=== PATIENT | male | born 1945 | race Caucasian/White ===

== ENCOUNTER 2017-02-02 20:16 | Inpatient (IN) | payer OTHER, BC ==
[~2017-02-02] VITALS: Ht 182.9 cm; Wt 70.0 kg
[~2017-02-02 20:16] MED LIST: CARV6.2579 PO; FAMO40TA52 PO; GABA300C16 PO; RASA1TAB PO; ROPI1TAB24 PO; SIN25100 PO
[2017-02-02 20:34] VITALS: Ht 182.9 cm; Wt 70.0 kg
[2017-02-02] MEDS ORDERED: CARB1TAB42 PO (21:15)
[2017-02-02] MEDS ORDERED: DOCU-159 PO (21:17)
[2017-02-02] MEDS ORDERED: ACET325T45 PO (21:17)
[2017-02-02] MEDS ORDERED: FER325 PO (21:18)
[2017-02-02] MEDS ORDERED: HYDR-906 PO (21:19)
[2017-02-02] MEDS ORDERED: MELA3TAB29 PO (21:19)
[2017-02-02] MEDS ORDERED: PANT40TA4 PO (21:20)
[2017-02-02] MEDS ORDERED: SENN-53 PO (21:20)
[2017-02-02] MEDS ORDERED: QUET25TA33 PO ×2 (21:23)
[2017-02-02] MEDS ORDERED: MAG360OR42 PO (21:25)
[2017-02-02] MEDS ORDERED: ACETAMINOPHEN 500 MG TAB PO STA (22:13)
[2017-02-02 22:43] VITALS: TEMP 98
--- NOTE | 2017-02-02 22:52 | ERA ---
ER Documentation Chief Complaint Date/Time DATE: 02/02/17 TIME: 22:50 Chief Complaint FROM [facility] C/O LEFT ELBOW WOUND DRAIN AND LOW HGB 6.8 HPI Patient is a 71-year-old male sent to the ER by his orthopedic surgeon Dr. Goodrich for septic elbow with osteomyelitis. The patient has had prior surgery with resection of bone and washout, and has been on oxacillin for culture positive MSSA. He has an open wound to the left elbow that has been draining pus for several days. He was sent to the ER 2 days ago at [place], and it is unclear what was done. Today he saw his orthopedic surgeon, who advised that the patient come to the emergency department for admission and repeat washout. The patient denies fevers. According to his notes, his PICC line has not been functioning since yesterday. He denies dizziness, vomiting. ROS All systems reviewed and are negative except as per history of present illness. Medications Home Meds Reported Medications Mag Hydrox/Al Hydrox/Simeth (ALUM-MAG HYDROXIDE-SIMETH LIQ) 360 Ml Oral.susp, 30 ML PO Q4H 02/02/17 Quetiapine Fumarate* (Quetiapine Fumarate*) 25 Mg Tablet, 12.5 MG PO HS for FOR DEMENTIA WITH PSYCHOSIS, TAB 02/02/17 Quetiapine Fumarate* (Quetiapine Fumarate*) 25 Mg Tablet, 12.5 MG PO Q12H Y for NEEDED, TAB 02/02/17 Sennosides* (Senna Lax*) 8.6 Mg Tablet, 1 TAB PO NEEDED Y for CONSTIPATION, TAB 02/02/17 Pantoprazole* (Pantoprazole*) 40 Mg Tablet.dr, 40 MG PO AC BREAKFAST, TAB 02/02/17 Hydrocodone/Acetaminophen (Pomfret 5-325 Tablet) 1 Each Tablet, 1 EACH PO Q6H, TAB 02/02/17 Melatonin (MELADOX) 3 Mg Tablet.er, 3 MG PO QHS, TAB 02/02/17 Ferrous Sulfate* (Ferrous Sulfate*) 325 Mg Tabec, 325 MG PO DAILY, TAB 02/02/17 Docusate Sodium* (Docusate Sodium*) 100 Mg Capsule, 100 MG PO BID Y for NEEDED, #60 CAP 02/02/17 Acetaminophen* (Acetaminophen*) 325 Mg Tablet, 325 MG PO Q4H Y for FOR FEVER>100 , #30 TAB 02/02/17 Carbidopa/Levodopa (Carbidopa-Levo ER 25-100 Tab) 1 Each Tablet.er, 2 EACH PO QID, TAB 02/02/17 Discontinued Reported Medications Famotidine* (Famotidine*) 40 Mg Tablet, 40 MG PO HS, TAB 01/15/14 Ropinirole Hcl* (Requip*) 1 Mg Tablet, 2 MG PO AC LUNCH 11/04/13 Ropinirole Hcl* (Requip*) 1 Mg Tablet, 4 MG PO BID 11/04/13 Gabapentin* (Gabapentin*) 300 Mg Capsule, 300 MG PO QHS, CAP 11/04/13 Rasagiline Mesylate* (Azilect*) 1 Mg Tablet, 1 MG PO DAILY 11/04/13 Carbidopa-Levodopa* (Sinemet*) 1 Tab Tab, 1 TAB PO 5 TIMES DAILY, TAB 11/04/13 Carvedilol* (Carvedilol*) 6.25 Mg Tablet, 6.25 MG PO BID 03/08/11 Allergies Allergies: Coded Allergies: No Known Drug Allergies (Verified Allergy, Unknown, 02/02/17) PMhx/Soc Past medical history: Parkinson's disease, hypertension, septic elbow Past surgical history: Bilateral hip replacements, washout of left elbow Social history: Lives in custodial, denies tobacco or alcohol History of Surgery: No Anesthesia Reaction: No Hx Respiratory Disorders: No Hx Cardiac Disorders: Yes (HTN) Hx Psychiatric Problems: No Hx Miscellaneous Medical Probl: Yes (MRSA) Hx Alcohol Use: No Hx Substance Use: No Hx Tobacco Use: No Smoking Status: Never smoker FmHx Family History: No coronary disease, No diabetes Physical Exam Vitals Vital Signs Date Time Temp Pulse Resp B/P Pulse Ox O2 Delivery O2 Flow Rate FiO2 02/03/17 00:35 73 16 135/81 98 Room Air 02/02/17 22:43 98.0 71 18 147/86 97 Room Air 02/02/17 20:34 98.0 69 18 114/57 96 02/02/17 20:27 101.6 69 18 114/57 99 Physical Exam Const: Alert, no acute distress Head: Atraumatic Eyes: Normal Conjunctiva, moderate pallor, no icterus ENT: Normal External Ears, Nose and Mouth. Mucous membranes moist Neck: Full range of motion..~ No meningismus. Resp: Clear to auscultation bilaterally, no wheezes, no rales Cardio: Regular rate and rhythm, no murmurs Abd: Soft, non tender, non distended. Normal bowel sounds Skin: No petechiae or rashes Back: No midline or flank tenderness Ext: No cyanosis. Left elbow with edema and mild erythema, 2 cm open wound draining thin purulent fluid. 2+ radial pulse, strength and sensation intact in the hand. Neur: Awake and alert Psych: Normal Mood and Affect Result Diagram: 02/02/17223902/02/172239 Results 24 hrs Laboratory Tests Test 02/02/17 22:40 White Blood Count 6.410^3/ul Red Blood Count 2.3910^6/ul Hemoglobin 7.1g/dl Hematocrit 22.0% Mean Corpuscular Volume 92.1fl Mean Corpuscular Hemoglobin 29.7pg Mean Corpuscular Hemoglobin Concent 32.3g/dl Red Cell Distribution Width 19.3% Platelet Count 64257^3/UL Mean Platelet Volume 8.8fl Neutrophils % 70.4% Lymphocytes % 19.2% Monocytes % 8.9% Eosinophils % 0.5% Basophils % 0.5% Nucleated Red Blood Cells % 0.0/100WBC Neutrophils # (Manual) 510^3/ul Lymphocytes # 1.210^3/ul Monocytes # 0.610^3/ul Eosinophils # 0.010^3/ul Basophils # 0.010^3/ul Nucleated Red Blood Cells # 0.010^3/ul Prothrombin Time 14.0Sec Prothrombin Time Ratio 1.1 INR International Normalized Ratio 1.08 Activated Partial Thromboplast Time 39.8Sec Sodium Level 132mmol/L Potassium Level 4.2mmol/L Chloride Level 100mmol/L Carbon Dioxide Level 27mmol/L Anion Gap 9 Blood Urea Nitrogen 18mg/dl Creatinine 0.80mg/dl Glucose Level 111mg/dl Calcium Level 8.4mg/dl Current Medications Medications (Trade) Dose Ordered Sig/Tommy Route PRN Reason Start Time Stop Time Status Last Admin Dose Admin Acetaminophen (Tylenol Tab) 1,000 mg ONCE STAT PO 02/02/17 22:13 02/02/17 22:15 DC 02/02/17 22:43 Ondansetron HCl (Zofran Inj) 4 mg BRIDGE ORDER PRN IV NAUSEA AND/OR VOMITING 02/02/17 23:00 02/03/17 01:30 DC Acetaminophen 650 mg 650 mg ER BRIDGE PRN PO MILD PAIN/FEVER 02/02/17 23:00 02/03/17 22:59 Oxacillin Sodium 2 gm/Sodium Chloride 50 ml @ 100 mls/hr ONCE ONCE IVPB 02/02/17 23:30 02/02/17 23:59 DC 02/02/17 23:34 Sodium Chloride (NS) 500 ml @ 500 mls/hr Q1H ONCE IV 02/02/17 23:30 02/03/17 00:29 DC 02/02/17 23:34 Procedures/MDM Patient is a 71-year-old male left elbow septic joint and osteomyelitis who has been followed by an orthopedic surgeon at [facility]. He was sent to [facility] today by his orthopedic surgeon after being seen as an outpatient and be determined to need further surgical treatment. I spoke with his orthopedic surgeon, who stated that due to insurance issues, he is unable to treat the patient at [facility], and that he does not have privileges at [facility]. He requested that I consult to the on-call orthopedic surgeon. I spoke with Dr. Lopez, who initially stated that he would not assume care of the patient who had been recently operated on by another surgeon. I discussed the case with Dr. Cheng, the [place] hospitalist, who spoke with both Dr. Goodrich and Dr. Lopez, and notified me that Dr. lopez had agreed to consult on the patient. The patient had a clotted PICC line, but a peripheral line was placed, and the patient was given IV fluids and oxacillin. He will be admitted for further surgical treatment, and will likely need infectious disease consultation due to failure of outpatient treatment with oxacillin. He has no signs of sepsis. He has chronic anemia with low iron levels, but is not symptomatic. I will defer to inpatient treatment regarding transfusion. Stool guaiacs were ordered. The patient was noted to have a hemoglobin of 7.8 two and a half weeks ago. Departure Diagnosis: Primary Impression: Osteomyelitis of elbow Additional Impression: Iron deficiency anemia Qualified Code: D50.9 - Iron deficiency anemia, unspecified iron deficiency anemia type Condition: ROSA De La Cruz MD Feb 02, 2017 22:52
[2017-02-02 22:59] LABS: BASOPHILS % 0.5 % (0.0-2.0); EOSINOPHILS % 0.5 % (0.0-7.0); HEMOGLOBIN 7.1 g/dl (14.0-18.0); LYMPHOCYTES # 1.2 10^3/ul (0.8-2.9); LYMPHOCYTES % 19.2 % (15.0-51.0); MEAN CORPUSCULAR HEMOGLOBIN 29.7 pg (29.0-33.0); MEAN CORPUSCULAR HGB CONC 32.3 g/dl (32.0-37.0); MEAN CORPUSCULAR VOLUME 92.1 fl (82.0-101.0); MEAN PLATELET VOLUME 8.8 fl (7.4-10.4); MONOCYTE # 0.6 10^3/ul (0.3-0.9); MONOCYTES % 8.9 % (0.0-11.0); NEUTROPHILS % 70.4 % (39.0-77.0); PLATELET COUNT 325 10^3/UL (140-415); RED BLOOD COUNT 2.39 10^6/ul (4.70-6.10); RED CELL DISTRIBUTION WIDTH 19.3 % (11.5-14.5); WHITE BLOOD COUNT 6.4 10^3/ul (4.8-10.8)
[2017-02-02] MEDS ORDERED: ACETAMINOPHEN 325 MG TAB PO PRN (23:00)
[2017-02-02] MEDS ORDERED: ONDANSETRON 4 MG INJ IV PRN (23:00)
[2017-02-02 23:17] LABS: INR 1.08; PT RATIO 1.1
[2017-02-02 23:18] LABS: PARTIAL THROMBOPLASTIN TIME 39.8 Sec (25.0-35.0)
[2017-02-02 23:20] LABS: CALCIUM 8.4 mg/dl (8.4-10.2); CREATININE 0.8 mg/dl (0.61-1.24); POTASSIUM 4.2 mmol/L (3.5-5.1)
[2017-02-02] MEDS ORDERED: OXACILLIN 2 GM in SOD CHLORIDE 0.9% 50 ML IVPB ONE (23:30)
[2017-02-02] MEDS ORDERED: SOD CHLORIDE 0.9% 500 ML IV ONE (23:30)
--- NOTE | 2017-02-02 23:58 | RADRPT ---
PROCEDURE: X-ray left elbow. CLINICAL INDICATION: Swelling and infectious process at the left elbow. Concern for osteomyelitis. TECHNIQUE: 2 views left elbow. COMPARISON: None. FINDINGS: Osseous defects at the trochlea, capitellum and dorsal radial head. Air and soft tissue swelling is seen over the left elbow, suggesting septic arthritis. In setting of a chronic infectious process at the left elbow findings are concerning for osteomyelit is at the dorsal radial head as well as at the trochlea. Additionally, there is a lucency at the pr oximal ulna, suggesting osteomyelitis. Lucency at the capitellum is also concerning for osteomyelit is. Recommend MRI examination for further evaluation. The trochlea appears fragmented. Dystrophic calcifications in the dorsal aspect of the medial dista l arm. IMPRESSION: 1. The findings likely represent multifocal osteomyelitis at the bilateral elbow, including involve ment of the trochlea, capitellum and dorsal radial head. 2. Air and soft tissue swelling is seen over the left elbow, suggest septic arthritis. 3. Consider MRI correlation. RPTAT: [facility] Physician Kadie Date Time Electronically viewed and signed by Physician Kadie on 02/02/2017 23:58 RS/
[2017-02-03] VITALS (11 sets, daily range): BP systolic 110–187; BP diastolic 59–97; PULSE 72–86; RESP 18–20
[2017-02-03] MEDS ORDERED: ONDANSETRON 4 MG INJ IV PRN (01:30)
[2017-02-03] MEDS ORDERED: OXACILLIN IM SCH (06:00)
[2017-02-03] MEDS ORDERED: OXACILLIN 2 GM in SOD CHLORIDE 0.9% 50 ML IVPB SCH (06:00)
[2017-02-03 08:35] LABS: BASOPHILS % 0.4 % (0.0-2.0); EOSINOPHILS % 0.2 % (0.0-7.0); HEMATOCRIT 22.5 % (42.0-52.0); HEMOGLOBIN 7.7 g/dl (14.0-18.0); LYMPHOCYTES # 1.2 10^3/ul (0.8-2.9); LYMPHOCYTES % 23.6 % (15.0-51.0); MEAN CORPUSCULAR HEMOGLOBIN 30.7 pg (29.0-33.0); MEAN CORPUSCULAR HGB CONC 34.2 g/dl (32.0-37.0); MEAN CORPUSCULAR VOLUME 89.6 fl (82.0-101.0); MONOCYTE # 0.5 10^3/ul (0.3-0.9); MONOCYTES % 9.1 % (0.0-11.0); NEUTROPHILS % 66.1 % (39.0-77.0); PLATELET COUNT 279 10^3/UL (140-415); RED BLOOD COUNT 2.51 10^6/ul (4.70-6.10); RED CELL DISTRIBUTION WIDTH 19.6 % (11.5-14.5)
[2017-02-03 09:09] LABS: CALCIUM 8.6 mg/dl (8.4-10.2); CREATININE 0.6 mg/dl (0.61-1.24); POTASSIUM 4.4 mmol/L (3.5-5.1)
[2017-02-03] MEDS ORDERED: ACETAMINOPHEN 500 MG TAB PO STA (09:38)
[2017-02-03] MEDS ORDERED: DIPHENHYDRAMINE 50 MG INJ IV ONE (10:00)
[2017-02-03] MEDS ORDERED: hydrALAzine 20 MG INJ IV STA (10:32)
[2017-02-03] MEDS: CARBIDOPA/LEVODOPA 50-200 (CR) TAB PO SCH ×3 (10:49→22:16)
--- NOTE | 2017-02-03 11:36 | HP ---
DATE OF ADMISSION: 02/03/2017 CHIEF COMPLAINT: "I was sent here by my orthopedic doctor for surgery". HISTORY OF PRESENT ILLNESS: The patient is a 71-year-old male with Parkinson disease who was recently hospitalized at [facility]. The patient was under the care of Dr. English who performed extensive irrigation and incision and debridement of the patient's left elbow for left elbow osteomyelitis with possible septic arthritis. The patient was also found to have left elbow cellulitis and sepsis with bacteremia. The patient's culture grew methicillin sensitive Staph aureus and the patient was placed on oxacillin. Then subsequently the patient was sent to a shelter facility for ongoing antibiotic care. The patient visited Dr. English in his office 1 day prior to admission, and he was sent to the emergency room. Apparently, he was transferred to [facility] and Dr. English told me that he does not have privileges here. As a result, antibiotics were started and Dr. Hensley was consulted. The patient was also found to have a hemoglobin of 7.1. He continued on oxacillin and given 2 units of packed red blood cells. ALLERGIES: NO KNOWN DRUG ALLERGIES. PAST MEDICAL HISTORY: As above. The patient stated that he does not go to the doctor much. PAST SURGICAL HISTORY: The patient denies. SOCIAL HISTORY: The patient denies current alcohol or tobacco use. FAMILY HISTORY: Essentially noncontributory in this pleasant 71- year-old gentleman. PHYSICAL EXAMINATION: VITAL SIGNS: Temperature is 98.7, blood pressure 147/81, pulse rate of 68, respiratory rate of 18, and oxygen saturation 98 percent on room air. HEENT: Normocephalic, atraumatic. Extraocular movements are intact. His pupils were equal, round, reactive to light and accommodation. His oropharynx was dry and his dentition was poor. CARDIOVASCULAR: Regular rate and rhythm without appreciable murmurs, rubs, or gallops. LUNGS: His lungs were clear to auscultation bilaterally without rales, rhonchi, or crackles. ABDOMEN: Abdomen is soft, nontender, nondistended with normoactive bowel sounds present in all 4 quadrants. No distention. EXTREMITIES: 2 plus dorsalis pedis pulse and 2 plus radial pulses bilaterally. There is a 2 cm open wound draining thin purulent fluid. He had 2 plus radial pulses. Strength and sensation was intact in his bilateral upper extremities and lower extremities. LABORATORY\\E\\TESTS: White count 6.4, hemoglobin 7.9, hematocrit of 22, platelet count 325,000 with normal differential. Sodium 132, potassium 4.2, chloride 100, bicarb 27, anion gap 9, BUN 18, creatinine 0.8, glucose 111, and calcium 8.4. PT is 14, INR 1.08, PTT of 39.8. RADIOLOGY: The patient had an x-ray of his left elbow which revealed multifocal osteomyelitis at the bilateral elbow including involvement of the trochlea, capitulum and dorsal radial head. There was also air and soft tissue mass swelling seen over the left elbow suggestive of septic arthritis. IMPRESSION: The patient is a 71-year-old gentleman with Parkinson disease who presents to the hospital with a wound infection and prior osteomyelitis of the left elbow. Dr. Hensley has been consulted, as well as Dr. Villa. The patient is continued on oxacillin. There was also some discussion of problems with his PICC line, which will be changed. At this point the patient will obtain these consultations and may need washout in the operating room. This we be depending on Dr. Villa's and Dr. Hensley's recommendations. The patient is stable and the plan of care has been explained to him. The patient also was found to be anemic. The chronicity is unknown. I will check a stool guaiac and transfuse the patient 2 units of packed red blood cells. Further treatment recommendations to follow based on the workup. Dictated By: Louie Cheng MD /chun/kaykay /Document#: [id number] JAIME
[2017-02-03] MEDS: DOCUSATE SODIUM 100 MG CAP PO SCH ×2 (11:59→22:16)
[2017-02-03] MEDS ORDERED: CEFTRIAXONE 2 GM/50 ML (PMX) 50 ML IVPB SCH (13:00)
[2017-02-03] MEDS ORDERED: VANCOMYCIN IV PER PHARMACY XX SCH (14:30)
[2017-02-03] MEDS ORDERED: VANCOMYCIN 1.5 GM in SOD CHLORIDE 0.9% 250 ML IVPB ONE (15:00)
--- NOTE | 2017-02-03 16:43 | CONS ---
DATE OF ADMISSION: 02/03/2017 DATE OF CONSULTATION: 02/03/2017 CHIEF COMPLAINT: Left elbow pain. HISTORY OF PRESENT ILLNESS: This is a 71-year-old male, who is complaining of left elbow pain. The patient is a poor historian. According to the patient, he has had chronic left elbow pain with drainage. He has had a recent left elbow excision and debridement performed by Dr. Mj Norman from [facility]. His last surgery was performed within the last 2 weeks. According to the patient, he has developed increased drainage of his left elbow. He denies any fevers or chills. He has no other complaints. PAST MEDICAL HISTORY: The patient denies any previous history. MEDICATIONS: None. PAST SURGICAL HISTORY: Left elbow irrigation and debridement performed by Dr. Mj Norman. SOCIAL HISTORY: The patient lives at a intermediate. Denies tobacco, alcohol, or drug use. FAMILY HISTORY: Noncontributory. ALLERGIES: NO KNOWN DRUG ALLERGIES. REVIEW OF SYSTEMS: Negative except for HPI. PHYSICAL EXAMINATION: VITAL SIGNS: Afebrile with stable vital signs. GENERAL: The patient is in no acute distress. He is alert and oriented times 2. EXTREMITIES: There is purulent drainage of the left elbow with a less than 1 cm open wound. There is surrounding cellulitis with effusion. He is able to actively flex and extend his elbow without pain. He has intact sensation distribution median, radial, and ulnar nerves. He has a palpable artery pulse. LABORATORY DATA: White blood cell count 6.4, hemoglobin 7.2. X-RAYS: X-rays of left elbow do not demonstrate any fractures or dislocations. There are changes consistent with osteomyelitis. IMPRESSION: A 71-year-old male with history of left elbow osteomyelitis and chronic drainage. PLAN: I spoke with Dr. Cheng. The plan will be to perform a left elbow irrigation and debridement with possible wound VAC application. He is on antibiotics. He has a history of methicillin-sensitive Staphylococcus aureus. He has a PICC line for outpatient antibiotics. I explained to Dr. Cheng that following the irrigation and debridement he can be transferred back to the care of Dr. Mj Norman for further care. I explained to the patient that he may require further irrigation and debridement, possible need for skin graft or flap, or possible amputation of his arm. He will be n.p.o. after midnight. Informed consent will be obtained from his DPOA. I spoke to this daughter, Rubina. All questions were answered to her satisfaction. Dictated By: Madison Mcmanus MD /chun/geovanny /Document#: [id number]
--- NOTE | 2017-02-03 21:40 | CONS ---
DATE OF ADMISSION: 02/03/2017 DATE OF CONSULTATION: 02/03/2017 REASON FOR CONSULTATION: Antibiotic management. HISTORY OF PRESENT ILLNESS: Alfonso Avalos is a 71-year-old male with a history of Parkinson disease who was recently hospitalized at [facility]. The patient was seen by Dr. English who performed an extensive irrigation with incision and drainage, as well as debridement of the patient's left elbow for left elbow osteomyelitis and possible septic arthritis. Patient was found to be septic with bacteremia with methicillin sensitive Staph aureus and was placed on oxacillin. Patient was then sent to a longterm facility. One day prior to admission he was seen by Dr. English and was sent to the emergency room, and transferred to [facility]. Patient has a white count of 6.4, H and H is 7.9 and 22, platelet count 325,000. His BUN and creatinine is 18/0.8, calcium 8.4. X-ray shows multifocal osteomyelitis at the left elbow involving the trochlea, capitellum and dorsal radial head. Air and soft tissue swelling is seen over the left elbow suggesting septic arthritis. Consider MRI correlation. Infectious Disease consult was obtained. PAST MEDICAL HISTORY: Operations as outlined. FAMILY HISTORY: Noncontributory. SOCIAL HISTORY: He does not smoke, drink, or abuse drugs. ALLERGIES: NONE TO PENICILLIN, SULFA, OR FOODS. MEDICATION: Per chart. REVIEW OF SYSTEMS: As per HPI. PHYSICAL EXAMINATION: GENERAL: Patient is a well-developed, well-nourished male who is alert, responsive, in no acute distress. VITAL SIGNS: Stable, he is afebrile. SKIN: Without generalized rash. HEENT: Within normal limits. NECK: Supple. Lymph nodes nonpalpable. CHEST: Decreased breath sounds at the bases. ABDOMEN: Soft, nontender, without organosplenomegaly or masses. EXTREMITIES: Without cyanosis, clubbing., or edema. He has good strength in his upper extremities. He has a 2 cm open wound draining thin purulent fluid from the left elbow. RECTAL: Deferred. NEUROLOGICAL: No focal neurological abnormalities. IMPRESSION AND PLAN: The patient is a 71-year-old male, comes in now with osteomyelitis of left elbow. Since he has methicillin sensitive Staph aureus and he has abnormal chemistries, I would put him on ceftriaxone rather than on oxacillin. Patient may need additional washout in the operating room, and Dr. Hensley and is covering for Dr. English, who does not have privileges here. I will dictate my findings to Dr. Gusman. Dictated By: Phi Villa MD JD/chun/kaykay /Document#: [id number]
[2017-02-03] MEDS: CEFTRIAXONE 2 GM/50 ML (PMX) 50 ML IVPB SCH (22:15)
[2017-02-04] VITALS (8 sets, daily range): BP systolic 98–158; BP diastolic 57–84; PULSE 72–87; RESP 18–20
[2017-02-04] MEDS: VANCOMYCIN 1 GM in NS 250 ML IVPB SCH ×2 (03:24→16:14)
[2017-02-04] MEDS: PANTOPRAZOLE (EC) 40 MG TAB PO SCH (05:58)
[2017-02-04] MEDS: CARBIDOPA/LEVODOPA 50-200 (CR) TAB PO SCH ×4 (08:40→20:40)
[2017-02-04] MEDS: DOCUSATE SODIUM 100 MG CAP PO SCH ×2 (08:40→20:40)
--- NOTE | 2017-02-04 11:08 | PN ---
Date/Time of Note Date/Time of Note DATE: 02/04/17 TIME: 11:01 Assessment/Plan VTE Prophylaxis VTE Prophylaxis Intervention: SCD's Lines/Catheters IV Catheter Type (from Nrs): Central Line Central line still needed: Yes Urinary Cath still in place: No Assessment/Plan Assessment/Plan The patient is a pleasant 71-year-old gentleman with: 1. Left elbow osteomyelitis and septic joint: Improving: I appreciate the recommendations from Dr. Villa and Dr. Hensley. Antibiotics modified from oxacillin to Rocephin. Vancomycin is still being administered. Dr. Hensley will try to put the patient on for washout tomorrow. The patient's son will sign consent. 2. Parkinson's disease: Stable. His symptoms are markedly improved after restarting his Sinemet. I will continue his Sinemet 4 times daily. 3. GI prophylaxis: Continue Protonix. Subjective 24 Hr Interval Summary Free Text/Dictation Awake and alert. The patient's son is at the bedside. He is the [employer]ER. There was some confusion as to consenting for operative debridement. The son and patient are both agreeable. Exam/Review of Systems Vital Signs Vitals Vital Signs Date Time Temp Pulse Resp B/P Pulse Ox O2 Delivery O2 Flow Rate FiO2 02/04/17 07:27 98.4 83 18 141/64 97 02/03/17 00:35 Room Air Intake and Output 02/03/17 02/03/17 02/04/17 15:00 23:00 07:00 Intake Total 50 ml 1990 ml 600 ml Output Total 952 ml 400 ml Balance 50 ml 1038 ml 200 ml Exam Constitutional: alert, oriented Psych: no complaints Head: normocephalic ENMT: nl external ears & nose, other (Poor dentition.) Neck: supple Respiratory: clear to auscultation Cardiovascular: regular rate and rhythm Gastrointestinal: soft Extremities: other (Left elbow is dressed. The dressing is clean dry and intact.) Results Result Diagram: 02/03/17 0758 02/03/17 0758 Results 24 hrs Laboratory Tests Test 02/03/17 17:15 Stool Occult Blood NEGATIVE Medications Medications Current Medications Ondansetron HCl (Zofran Inj) 4 mg Q6 PRN IV NAUSEA AND/OR VOMITING; Start 02/03 at 01:30 Carbidopa/Levodopa (Sinemet Cr (50/ 200)) 1 tab QID PO Last administered on 08:40; Admin Dose 1 TAB; Start 02/03/17 at 12:00 Pantoprazole (Protonix Tab) 40 mg DAILY@06 PO ; Start 02/04/17 at 06:00 Docusate Sodium 100 mg 100 mg BID PO Last administered on 02/04/17 08:40; Admin Dose 100 MG; Start 02/03/17 at 11:00 Vancomycin HCl 250 ml @ 125 mls/hr Q12H IVPB Last administered on 02/04/17 03 :24; Admin Dose 125 MLS/HR; Start 02/04/17 at 03:00 Ceftriaxone Sodium (Rocephin) 50 ml @ 100 mls/hr Q24H IVPB Last administered on 02/03/17 22:15; Admin Dose 100 MLS/HR; Start 02/03/17 at 21:00 MEHUL CARTER MD Feb 04, 2017 11:08
[2017-02-04 11:26] LABS: BASOPHILS % 0.3 % (0.0-2.0); HEMOGLOBIN 9.3 g/dl (14.0-18.0); LYMPHOCYTES # 0.6 10^3/ul (0.8-2.9); LYMPHOCYTES % 10.6 % (15.0-51.0); MEAN CORPUSCULAR HEMOGLOBIN 30.2 pg (29.0-33.0); MEAN CORPUSCULAR HGB CONC 33.2 g/dl (32.0-37.0); MEAN CORPUSCULAR VOLUME 90.9 fl (82.0-101.0); MEAN PLATELET VOLUME 9.1 fl (7.4-10.4); MONOCYTE # 0.5 10^3/ul (0.3-0.9); NEUTROPHILS % 80.8 % (39.0-77.0); PLATELET COUNT 297 10^3/UL (140-415); RED BLOOD COUNT 3.08 10^6/ul (4.70-6.10); RED CELL DISTRIBUTION WIDTH 18.6 % (11.5-14.5); WHITE BLOOD COUNT 5.7 10^3/ul (4.8-10.8)
[2017-02-04 11:48] LABS: CALCIUM 8.7 mg/dl (8.4-10.2); CREATININE 0.59 mg/dl (0.61-1.24); POTASSIUM 4.2 mmol/L (3.5-5.1)
--- NOTE | 2017-02-04 14:30 | PN ---
DATE: 02/04/2017 SUBJECTIVE: No acute changes. The patient is alert, looks comfortable. No fevers. LABORATORY AND DIAGNOSTIC DATA: WBC 5.7, H and H 9.3 and 28, platelets 297, neutrophils 80.8, BUN 15, creatinine 0.59. Left elbow wound cultures are pending. Nares swab negative. Blood cultures pending. ANTIMICROBIALS: Vancomycin, Rocephin. INDWELLINGS: PICC line, right upper extremity, present on admission. PHYSICAL EXAMINATION: GENERAL: Fragile, chronically ill-appearing elderly man who is alert, in no distress. HEENT: Head atraumatic, normocephalic. Sclerae anicteric. Buccal mucosa dry. NECK: Supple. CHEST: Rise symmetrical. Breath sounds clear. HEART: S1, S2. ABDOMEN: Soft. Bowel sounds present. EXTREMITIES: Left elbow dressing intact. ASSESSMENT: 1. 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 2. Parkinson's dementia. 3. Systemic inflammatory response syndrome. PLAN: The patient remains stable, covered with broad-spectrum antibiotics. Pending wound cultures. The patient is being seen Ortho, plan for I and D. Anticipate discharge on IV antibiotics for 6-8 weeks. Follow up with Ortho. Dictated By: Abby Gilliland NP /chun/gama /Document#: [id number]
[2017-02-04] MEDS: QUETIAPINE 25 MG TAB PO PRN (16:14)
[2017-02-04] MEDS: QUETIAPINE 25 MG TAB PO SCH (20:40)
[2017-02-04] MEDS: CEFTRIAXONE 2 GM/50 ML (PMX) 50 ML IVPB SCH (20:40)
[2017-02-04] MEDS: D5W-0.45 NACL + KCL 20 MEQ 1,000 ML IV SCH (23:58)
[2017-02-05] VITALS (27 sets, daily range): BP systolic 94–184; BP diastolic 50–90; PULSE 71–86; RESP 18–28
[2017-02-05 03:00] LABS: CALCIUM 8.5 mg/dl (8.4-10.2); CREATININE 0.61 mg/dl (0.61-1.24); POTASSIUM 4.3 mmol/L (3.5-5.1)
[2017-02-05] MEDS: VANCOMYCIN 1 GM in NS 250 ML IVPB SCH (03:02)
[2017-02-05] MEDS: PANTOPRAZOLE (EC) 40 MG TAB PO SCH (05:07)
[2017-02-05 06:26] LABS: BASOPHILS % 0.4 % (0.0-2.0); HEMATOCRIT 25.6 % (42.0-52.0); HEMOGLOBIN 8.5 g/dl (14.0-18.0); LYMPHOCYTES # 0.8 10^3/ul (0.8-2.9); LYMPHOCYTES % 15.4 % (15.0-51.0); MEAN CORPUSCULAR HEMOGLOBIN 30.1 pg (29.0-33.0); MEAN CORPUSCULAR HGB CONC 33.2 g/dl (32.0-37.0); MEAN CORPUSCULAR VOLUME 90.8 fl (82.0-101.0); MEAN PLATELET VOLUME 8.7 fl (7.4-10.4); MONOCYTE # 0.7 10^3/ul (0.3-0.9); MONOCYTES % 12.8 % (0.0-11.0); PLATELET COUNT 251 10^3/UL (140-415); RED BLOOD COUNT 2.82 10^6/ul (4.70-6.10); RED CELL DISTRIBUTION WIDTH 18.6 % (11.5-14.5); WHITE BLOOD COUNT 5.4 10^3/ul (4.8-10.8)
[2017-02-05] MEDS ORDERED: LIDOCAINE 2% (SDV) 5 ML INJ ONE (07:00)
[2017-02-05] MEDS ORDERED: PROPOFOL 200 MG INJ ONE (07:00)
[2017-02-05] MEDS: CARBIDOPA/LEVODOPA 50-200 (CR) TAB PO SCH ×4 (08:20→20:13)
[2017-02-05] MEDS: DOCUSATE SODIUM 100 MG CAP PO SCH ×2 (08:20→20:13)
[2017-02-05] MEDS: D5W-0.45 NACL + KCL 20 MEQ 1,000 ML IV SCH ×2 (10:00→20:13)
[2017-02-05] MEDS ORDERED: hydrALAzine 20 MG INJ ONE (11:24)
[2017-02-05] MEDS: hydrALAzine 20 MG INJ IV PRN (11:25)
[2017-02-05] MEDS ORDERED: ONDANSETRON 4 MG INJ IV PRN (12:30)
[2017-02-05] MEDS ORDERED: EPHEDrine SULFATE 50 MG/5 ML SYG IV PRN (12:30)
[2017-02-05] MEDS ORDERED: KETOROLAC 30 MG INJ IV PRN (12:30)
[2017-02-05] MEDS ORDERED: FENTAnyl 50 MCG/ML VIAL IV PRN ×3 (12:30)
[2017-02-05] MEDS ORDERED: LABETALOL HCL 20MG INJ IV PRN (12:30)
[2017-02-05] MEDS ORDERED: hydrALAzine 20 MG INJ IV PRN (12:30)
[2017-02-05] MEDS ORDERED: morphine (1 MG/ML) 10ML SYRINGE IV PRN ×3 (12:30)
[2017-02-05] MEDS ORDERED: MEPERIDINE 25 MG INJ IV PRN (12:30)
[2017-02-05] MEDS ORDERED: FENTAnyl 50 MCG/ML VIAL ONE (12:32)
--- NOTE | 2017-02-05 13:53 | HPN ---
Date/Time of Note Date/Time of Note DATE: 02/05/17 TIME: 13:53 Interval H&P Admission Note Pt. seen H&P reviewed: No system changes SADIE PARKER MD Feb 05, 2017 13:53
[2017-02-05] MEDS ORDERED: PHENYLephrine (100 MCG/ML) 5ML SYG ONE (14:06)
[2017-02-05] MEDS ORDERED: MIDAZOLAM 1 MG/ML 2 ML INJ ONE (14:11)
--- NOTE | 2017-02-05 14:27 | CONS ---
Date/Time of Note Date/Time of Note DATE: 02/05/17 TIME: 14:25 Assessment/Plan Assessment/Plan Chief Complaint/Hosp Course SUBJECTIVE: No acute changes. The patient is alert, looks comfortable. No fevers. ANTIMICROBIALS: Vancomycin, Rocephin. INDWELLINGS: PICC line, right upper extremity, present on admission. PHYSICAL EXAMINATION: GENERAL: Fragile, chronically ill-appearing elderly man who is alert, in no distress. HEENT: Head atraumatic, normocephalic. Sclerae anicteric. Buccal mucosa dry. NECK: Supple. CHEST: Rise symmetrical. Breath sounds clear. HEART: S1, S2. ABDOMEN: Soft. Bowel sounds present. EXTREMITIES: Left elbow dressing intact. ASSESSMENT: 1. 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 2. Parkinson's dementia. 3. Systemic inflammatory response syndrome. PLAN: The patient remains stable, scheduled for debridement today, continue antibiotics, follow or to recommendations. Patient will require long-term IV antibiotics. Discussed with staff Problems: Consultation Date/Type/Reason Admit Date/Time Feb 03, 2017 at 01:18 Initial Consult Date Type of Consultation: ID Exam/Review of Systems Vital Signs Vitals Vital Signs Date Time Temp Pulse Resp B/P Pulse Ox O2 Delivery O2 Flow Rate FiO2 02/05/17 11:36 98.8 85 18 140/71 98 Room Air Intake and Output 02/04/17 02/04/17 02/05/17 15:00 23:00 07:00 Intake Total 1220 ml 790 ml Balance 1220 ml 790 ml Results Result Diagram: 02/05/17 0455 02/05/17 0200 Results 24 hrs Laboratory Tests Test 02/05/17 02:00 02/05/17 04:55 02/05/17 06:49 Sodium Level 138 Potassium Level 4.3 Chloride Level 103 Carbon Dioxide Level 23 Anion Gap 16 Blood Urea Nitrogen 16 Creatinine 0.61 Glucose Level 110 Calcium Level 8.5 Vancomycin Level Trough 19.2 White Blood Count 5.4 Red Blood Count 2.82 L Hemoglobin 8.5 L Hematocrit 25.6 L Mean Corpuscular Volume 90.8 Mean Corpuscular Hemoglobin 30.1 Mean Corpuscular Hemoglobin Concent 33.2 Red Cell Distribution Width 18.6 H Platelet Count 251 Mean Platelet Volume 8.7 Neutrophils % 71.0 Lymphocytes % 15.4 Monocytes % 12.8 H Eosinophils % 0.0 Basophils % 0.4 Nucleated Red Blood Cells % 0.0 Neutrophils # (Manual) 4 Lymphocytes # 0.8 Monocytes # 0.7 Eosinophils # 0.0 Basophils # 0.0 Nucleated Red Blood Cells # 0.0 Lab Scanned Report BLOOD TRANSFUSION Medications Medications Current Medications Ondansetron HCl (Zofran Inj) 4 mg Q6 PRN IV NAUSEA AND/OR VOMITING; Start 02/03 at 01:30 Carbidopa/Levodopa (Sinemet Cr (50/ 200)) 1 tab QID PO Last administered on 20:40; Admin Dose 1 TAB; Start 02/03/17 at 12:00 Pantoprazole (Protonix Tab) 40 mg DAILY@06 PO ; Start 02/04/17 at 06:00 Docusate Sodium 100 mg 100 mg BID PO Last administered on 02/04/17 20:40; Admin Dose 100 MG; Start 02/03/17 at 11:00 Ceftriaxone Sodium (Rocephin) 50 ml @ 100 mls/hr Q24H IVPB Last administered on 02/04/17 20:40; Admin Dose 100 MLS/HR; Start 02/03/17 at 21:00 Quetiapine Fumarate (Seroquel) 12.5 mg QHS PO Last administered on 02/04/17 20 :40; Admin Dose 12.5 MG; Start 02/04/17 at 21:00 Quetiapine Fumarate 12.5 mg 12.5 mg Q12 PRN PO dementia with psychosis Last administered on 02/04/17 16:14; Admin Dose 12.5 MG; Start 02/04/17 at 15:00 Potassium Chloride/Dextrose/ Sod Cl 1,000 ml @ 100 mls/hr Q10H IV Last administered on 02/04/17 23:58; Admin Dose 100 MLS/HR; Start 02/05/17 at 00:00 Vancomycin HCl/ Sodium Chloride (Vancocin/NS) 250 ml @ 83.333 mls/ hr Q24H IVPB ; Start 02/05/17 at 23:00 Hydralazine HCl (Apresoline) 10 mg Q6H PRN IV SBP>160 Last administered on 02/05 11:25; Admin Dose 10 MG; Start 02/05/17 at 11:30 LARRY ARIAS NP Feb 05, 2017 14:26
--- NOTE | 2017-02-05 15:18 | OPR ---
Date/Time of Note Date/Time of Note DATE: 02/05/17 TIME: 15:16 Operative Report Preoperative Diagnosis Left elbow osteomyelitis Postoperative Diagnosis Same Operation/Procedure Performed Left elbow excision and debridement Left elbow application of wound VAC Surgeon: SADIE PARKER MD Anesthesia Type: general Estimated Blood Loss: none Transfusion Required: no Specimens Left elbow cultures Grafts/Implants: none Complications: no SADIE PARKER MD Feb 05, 2017 15:18
--- NOTE | 2017-02-05 15:38 | PN ---
Date/Time of Note Date/Time of Note DATE: 02/05/17 TIME: 15:32 Assessment/Plan VTE Prophylaxis VTE Prophylaxis Intervention: SCD's Lines/Catheters IV Catheter Type (from Nrs): Saline Lock Urinary Cath still in place: No Assessment/Plan Assessment/Plan 71-year-old man with: 1. Left elbow osteomyelitis and septic joint: POD#0 s/p Left elbow excision and debridement and left elbow application of wound VAC by Dr Hensley On broad-spectrum IV abx and infectious disease Dr. Villa also following. Follow-up on intraoperative wound cultures Continue current antibiotics, case discussed with infectious disease today. Continue pain control 2. Parkinson's disease: Stable. Continue Sinemet 4 times daily for symptom control. Seroquel as needed for agitation especially at night. Prophylaxis: Protonix for GI prophylaxis, SCDs for DVT prophylaxis. Disposition: Follow-up further orthopedic surgery and infectious disease recommendation tomorrow. Subjective 24 Hr Interval Summary Free Text/Dictation Patient currently in the operating room for debridement of the left shoulder given this diagnosis of osteomyelitis. Exam/Review of Systems Vital Signs Vitals Vital Signs Date Time Temp Pulse Resp B/P Pulse Ox O2 Delivery O2 Flow Rate FiO2 02/05/17 15:20 97.5 02/05/17 15:19 82 28 121/62 97 Room Air Intake and Output 02/04/17 02/04/17 02/05/17 15:00 23:00 07:00 Intake Total 1220 ml 790 ml Balance 1220 ml 790 ml Exam Patient currently in the operating room therefore not available for complete physical exam. Results Result Diagram: 02/05/17 0455 02/05/17 0200 Results 24 hrs Laboratory Tests Test 02/05/17 02:00 02/05/17 04:55 02/05/17 06:49 Sodium Level 138 Potassium Level 4.3 Chloride Level 103 Carbon Dioxide Level 23 Anion Gap 16 Blood Urea Nitrogen 16 Creatinine 0.61 Glucose Level 110 Calcium Level 8.5 Vancomycin Level Trough 19.2 White Blood Count 5.4 Red Blood Count 2.82 L Hemoglobin 8.5 L Hematocrit 25.6 L Mean Corpuscular Volume 90.8 Mean Corpuscular Hemoglobin 30.1 Mean Corpuscular Hemoglobin Concent 33.2 Red Cell Distribution Width 18.6 H Platelet Count 251 Mean Platelet Volume 8.7 Neutrophils % 71.0 Lymphocytes % 15.4 Monocytes % 12.8 H Eosinophils % 0.0 Basophils % 0.4 Nucleated Red Blood Cells % 0.0 Neutrophils # (Manual) 4 Lymphocytes # 0.8 Monocytes # 0.7 Eosinophils # 0.0 Basophils # 0.0 Nucleated Red Blood Cells # 0.0 Lab Scanned Report BLOOD TRANSFUSION Medications Medications Current Medications Ondansetron HCl (Zofran Inj) 4 mg Q6 PRN IV NAUSEA AND/OR VOMITING; Start 02/03 at 01:30 Carbidopa/Levodopa (Sinemet Cr (50/ 200)) 1 tab QID PO Last administered on 20:40; Admin Dose 1 TAB; Start 02/03/17 at 12:00 Pantoprazole (Protonix Tab) 40 mg DAILY@06 PO ; Start 02/04/17 at 06:00 Docusate Sodium 100 mg 100 mg BID PO Last administered on 02/04/17 20:40; Admin Dose 100 MG; Start 02/03/17 at 11:00 Ceftriaxone Sodium (Rocephin) 50 ml @ 100 mls/hr Q24H IVPB Last administered on 02/04/17 20:40; Admin Dose 100 MLS/HR; Start 02/03/17 at 21:00 Quetiapine Fumarate (Seroquel) 12.5 mg QHS PO Last administered on 02/04/17 20 :40; Admin Dose 12.5 MG; Start 02/04/17 at 21:00 Quetiapine Fumarate 12.5 mg 12.5 mg Q12 PRN PO dementia with psychosis Last administered on 02/04/17 16:14; Admin Dose 12.5 MG; Start 02/04/17 at 15:00 Potassium Chloride/Dextrose/ Sod Cl 1,000 ml @ 100 mls/hr Q10H IV Last administered on 02/04/17 23:58; Admin Dose 100 MLS/HR; Start 02/05/17 at 00:00 Vancomycin HCl/ Sodium Chloride (Vancocin/NS) 250 ml @ 83.333 mls/ hr Q24H IVPB ; Start 02/05/17 at 23:00 Hydralazine HCl (Apresoline) 10 mg Q6H PRN IV SBP>160 Last administered on 02/05 11:25; Admin Dose 10 MG; Start 02/05/17 at 11:30 JAVON DEVRIES Feb 05, 2017 15:38
--- NOTE | 2017-02-05 19:30 | OPR ---
DATE OF OPERATION: 02/05/2017 SURGEON: Dr. Madison Mcmanus DIESEL TECHNOLOGY INSTRUCTOR: None. PREOPERATIVE DIAGNOSIS: 1. Left elbow excision and debridement of wound measuring 10 cm x 2 cm x 2 cm. 2. Application of left elbow wound VAC. ANESTHESIA: General. ANESTHESIOLOGIST: Dr. Castellon. COMPLICATIONS: None. SPECIMEN: Cultures from left elbow. TOURNIQUET: None. DISPOSITION: PACU in stable condition. INDICATIONS FOR PROCEDURE: This is a 71-year-old male with a past medical history of left elbow osteomyelitis, with previous left elbow debridement performed by Dr. Mj Norman. The patient had purulent drainage from the left elbow with the increasing pain. His cultures have grown methicillin sensitive staph aureus. Risks, benefits and alternatives to surgical intervention were discussed with the patient as well as his son and informed consent was obtained. The risks of surgery include, but are not limited to, continued infection, deep venous thrombosis, heart attack, stroke, damage to neurovascular structures. Loss of elbow motion, stiffness, damage to the triceps tendon, need for skin graft or a muscle flap, possible amputation, and even . OPERATIVE PROCEDURE: Patient was met in preop. The procedure area confirmed and marked. He was then brought into the operating room. After induction of general anesthesia, he was placed in the right lateral decubitus position. All bony prominences were padded and an axillary roll was placed. A time- out was taken to identify the correct operative site and confirmed that preoperative antibiotics consisting of IV Ancef were administered. At this point, his previous incision was identified and marked. There was an open wound on the posterior aspect of the elbow over the olecranon process. An incision was made. Aerobic and anaerobic cultures were taken. There was extensive purulent fluid evacuated. A rongeur was used to debride nonviable tissue. The wound measured approximately 10 cm x 2 cm x 2 cm. After extensive debridement, the pulse aromatherapist was used and 9 L of sterile saline was used to irrigate the wound. Attempt was made for primary closure. The distal and proximal most aspect of the wound was closed with mery. There was an area that was unable to be closed primarily and a wound VAC was applied. The wound VAC was noted to have no leak. A sterile dressing consisting of Kerlix and 4x4s was applied. There were no complications. Patient was awakened and taken to the postop care unit in stable condition. POSTOPERATIVE CARE: The patient will continue to receive IV antibiotics per recommendation of Infectious Disease. The patient will require further debridement, with possible skin graft or muscle flap. The patient may also require chronic antibiotic suppression, and possible left upper extremity amputation. I spoke with Dr. Cheng and patient will require a higher level of care. I also spoke to the patient's son. All questions were answered to his satisfaction. Dictated By: Madison Mcmanus MD /chun/ /Document#: [id number]
[2017-02-05] MEDS: CEFTRIAXONE 2 GM/50 ML (PMX) 50 ML IVPB SCH (20:13)
[2017-02-05] MEDS: QUETIAPINE 25 MG TAB PO SCH (20:14)
[2017-02-05] MEDS: VANCOMYCIN 1.5 GM in SOD CHLORIDE 0.9% 250 ML IVPB SCH (22:59)
[2017-02-06] VITALS (14 sets, daily range): BP systolic 97–168; BP diastolic 52–89; PULSE 68–87; RESP 16–20
[2017-02-06] MEDS: PANTOPRAZOLE (EC) 40 MG TAB PO SCH (05:02)
[2017-02-06] MEDS: D5W-0.45 NACL + KCL 20 MEQ 1,000 ML IV SCH ×3 (05:02→21:00)
[2017-02-06 05:40] LABS: BASOPHILS % 0.6 % (0.0-2.0); EOSINOPHILS % 0.2 % (0.0-7.0); HEMATOCRIT 27.5 % (42.0-52.0); LYMPHOCYTES # 0.9 10^3/ul (0.8-2.9); LYMPHOCYTES % 18.1 % (15.0-51.0); MEAN CORPUSCULAR HEMOGLOBIN 30.4 pg (29.0-33.0); MEAN CORPUSCULAR HGB CONC 32.7 g/dl (32.0-37.0); MEAN CORPUSCULAR VOLUME 92.9 fl (82.0-101.0); MEAN PLATELET VOLUME 8.9 fl (7.4-10.4); MONOCYTE # 0.6 10^3/ul (0.3-0.9); MONOCYTES % 12.6 % (0.0-11.0); NEUTROPHILS % 68.3 % (39.0-77.0); PLATELET COUNT 231 10^3/UL (140-415); RED BLOOD COUNT 2.96 10^6/ul (4.70-6.10); RED CELL DISTRIBUTION WIDTH 18.6 % (11.5-14.5); WHITE BLOOD COUNT 4.9 10^3/ul (4.8-10.8)
[2017-02-06 06:08] LABS: MAGNESIUM 1.7 mg/dl (1.7-2.5); PHOSPHORUS 3.3 mg/dl (2.5-4.9)
[2017-02-06 06:14] LABS: CALCIUM 8.8 mg/dl (8.4-10.2); CREATININE 0.62 mg/dl (0.61-1.24); POTASSIUM 4.4 mmol/L (3.5-5.1)
[2017-02-06] MEDS: DOCUSATE SODIUM 100 MG CAP PO SCH ×2 (08:59→20:17)
[2017-02-06] MEDS: CARBIDOPA/LEVODOPA 50-200 (CR) TAB PO SCH ×4 (08:59→20:16)
--- NOTE | 2017-02-06 13:48 | PN ---
Date/Time of Note Date/Time of Note DATE: 02/06/17 TIME: 13:42 Assessment/Plan VTE Prophylaxis VTE Prophylaxis Intervention: SCD's Lines/Catheters IV Catheter Type (from Nrsg): PICC Line Central line still needed: Yes (For IV antibiotics) Urinary Cath still in place: No Assessment/Plan Assessment/Plan 71-year-old man with: 1. Left elbow osteomyelitis and septic joint: POD#1 s/p Left elbow excision and debridement and left elbow application of wound VAC by Dr Hensley On broad-spectrum IV abx and infectious disease Dr. Villa also following. Follow-up on intraoperative wound cultures for antibiotic adjustment Continue current antibiotics, case discussed with infectious disease today. Patient does have a PICC line Continue pain control 2. Parkinson's disease: Stable. Continue Sinemet 4 times daily for symptom control. Patient with dementia and currently restrained. Seroquel as needed for agitation especially at night. Prophylaxis: Protonix for GI prophylaxis, SCDs for DVT prophylaxis. Disposition: Follow-up further orthopedic surgery and infectious disease recommendation today, and hopefully discharge planning back to shelter facility in the next 48 hours if no further surgical debridement on this admission. Subjective 24 Hr Interval Summary Free Text/Dictation Patient is currently with soft limb restraints of the upper extremities, he does have dementia, he has left elbow dressing and a wound VAC in place. Vital signs are stable, he remains afebrile, on broad-spectrum antibiotics. Exam/Review of Systems Vital Signs Vitals Vital Signs Date Time Temp Pulse Resp B/P Pulse Ox O2 Delivery O2 Flow Rate FiO2 02/06/17 12:12 98.5 72 18 133/81 96 Room Air Intake and Output 02/05/17 02/05/17 02/06/17 15:00 23:00 07:00 Intake Total 600 ml 750 ml 1020 ml Output Total 30 ml 150 ml Balance 570 ml 750 ml 870 ml Exam Constitutional: alert, frail, oriented, other (Pleasant and answering simple questions appropriately ) Respiratory: clear to auscultation, normal air movement Cardiovascular: nl pulses, regular rate and rhythm Gastrointestinal: non-tender, soft Musculoskeletal: other (Left elbow status post debridement, wound VAC in place , dressing in place) Extremities: normal pulses, other (No edema, clubbing or cyanosis) Results Result Diagram: 02/06/17 0459 02/06/17 0459 Results 24 hrs Laboratory Tests Test 02/06/17 04:59 White Blood Count 4.9 Red Blood Count 2.96 L Hemoglobin 9.0 L Hematocrit 27.5 L Mean Corpuscular Volume 92.9 Mean Corpuscular Hemoglobin 30.4 Mean Corpuscular Hemoglobin Concent 32.7 Red Cell Distribution Width 18.6 H Platelet Count 231 Mean Platelet Volume 8.9 Neutrophils % 68.3 Lymphocytes % 18.1 Monocytes % 12.6 H Eosinophils % 0.2 Basophils % 0.6 Nucleated Red Blood Cells % 0.0 Neutrophils # (Manual) 3 Lymphocytes # 0.9 Monocytes # 0.6 Eosinophils # 0.0 Basophils # 0.0 Nucleated Red Blood Cells # 0.0 Sodium Level 139 Potassium Level 4.4 Chloride Level 103 Carbon Dioxide Level 25 Anion Gap 15 Blood Urea Nitrogen 12 Creatinine 0.62 Glucose Level 99 Calcium Level 8.8 Phosphorus Level 3.3 Magnesium Level 1.7 Medications Medications Current Medications Ondansetron HCl (Zofran Inj) 4 mg Q6 PRN IV NAUSEA AND/OR VOMITING; Start 02/03 at 01:30 Carbidopa/Levodopa (Sinemet Cr (50/ 200)) 1 tab QID PO Last administered on 08:59; Admin Dose 1 TAB; Start 02/03/17 at 12:00 Pantoprazole (Protonix Tab) 40 mg DAILY@06 PO ; Start 02/04/17 at 06:00 Docusate Sodium 100 mg 100 mg BID PO Last administered on 02/06/17 08:59; Admin Dose 100 MG; Start 02/03/17 at 11:00 Ceftriaxone Sodium (Rocephin) 50 ml @ 100 mls/hr Q24H IVPB Last administered on 02/05/17 20:13; Admin Dose 100 MLS/HR; Start 02/03/17 at 21:00 Quetiapine Fumarate (Seroquel) 12.5 mg QHS PO Last administered on 02/05/17 20 :14; Admin Dose 12.5 MG; Start 02/04/17 at 21:00 Quetiapine Fumarate 12.5 mg 12.5 mg Q12 PRN PO dementia with psychosis Last administered on 02/04/17 16:14; Admin Dose 12.5 MG; Start 02/04/17 at 15:00 Potassium Chloride/Dextrose/ Sod Cl 1,000 ml @ 100 mls/hr Q10H IV Last administered on 02/06/17 10:06; Admin Dose 100 MLS/HR; Start 02/05/17 at 00:00 Vancomycin HCl/ Sodium Chloride (Vancocin/NS) 250 ml @ 83.333 mls/ hr Q24H IVPB Last administered on 02/05/17 22:59; Admin Dose 83.333 MLS/HR; Start at 23:00 Hydralazine HCl (Apresoline) 10 mg Q6H PRN IV SBP>160 Last administered on 02/05 11:25; Admin Dose 10 MG; Start 02/05/17 at 11:30 JAVON DEVRIES Feb 06, 2017 13:48
--- NOTE | 2017-02-06 19:54 | PN ---
DATE: 02/06/2017 SUBJECTIVE: No events overnight. The patient is alert. Daughter at bedside. No fevers, he is in no distress. Microbiology: Wound culture still pending. Indwelling: Patient has right upper extremity PICC line present on admission. Antimicrobials: Vancomycin and Rocephin. PHYSICAL EXAMINATION: GENERAL: This is a chronically ill-appearing, wasted, elderly man who is awake, in no distress. HEENT: Head atraumatic, normocephalic. Sclerae anicteric. Buccal mucosa dry. NECK: Supple. CHEST: Rise symmetrical. Breath sounds diminished at the bases. HEART: S1, S2. ABDOMEN: Soft, bowel sounds present. EXTREMITIES: Without cyanosis. Left upper extremity dressing intact. Wound VAC present. ASSESSMENT: 1. 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 Status post-incision and drainage on 02/05/2017, with wound complication. 2. Parkinson's dementia. PLAN: The patient remains stable. He is on appropriate antimicrobials and wound cultures are pending. He is being followed by ortho surgeon. Recommend long-term IV antibiotics and follow with Ortho as an outpatient. Dictated By: Abby Gilliland NP /chun/aracelis /Document#: [id number]
[2017-02-06] MEDS: QUETIAPINE 25 MG TAB PO SCH (20:16)
[2017-02-06] MEDS: CEFTRIAXONE 2 GM/50 ML (PMX) 50 ML IVPB SCH (20:19)
[2017-02-06] MEDS: VANCOMYCIN 1.5 GM in SOD CHLORIDE 0.9% 250 ML IVPB SCH (23:01)
[2017-02-07] VITALS (15 sets, daily range): BP systolic 106–171; BP diastolic 56–88; PULSE 69–90; RESP 18–20
[2017-02-07] MEDS: D5W-0.45 NACL + KCL 20 MEQ 1,000 ML IV SCH ×4 (01:47→22:38)
[2017-02-07 05:32] LABS: ABNORMAL IP MESSAGE 1; BASOPHILS % 0.3 % (0.0-2.0); EOSINOPHILS % 0.1 % (0.0-7.0); LYMPHOCYTES # 1.7 10^3/ul (0.8-2.9); LYMPHOCYTES % 19.5 % (15.0-51.0); MEAN CORPUSCULAR HEMOGLOBIN 30.4 pg (29.0-33.0); MEAN CORPUSCULAR HGB CONC 32.9 g/dl (32.0-37.0); MEAN CORPUSCULAR VOLUME 92.5 fl (82.0-101.0); MEAN PLATELET VOLUME 9.4 fl (7.4-10.4); MONOCYTES % 11.9 % (0.0-11.0); NEUTROPHILS % 67.7 % (39.0-77.0); PLATELET COUNT 259 10^3/UL (140-415); POSITIVE DIFF @See below; RED BLOOD COUNT 2.27 10^6/ul (4.70-6.10); RED CELL DISTRIBUTION WIDTH 18.6 % (11.5-14.5); WHITE BLOOD COUNT 8.7 10^3/ul (4.8-10.8)
[2017-02-07] MEDS: PANTOPRAZOLE (EC) 40 MG TAB PO SCH (05:33)
[2017-02-07 06:09] LABS: ALBUMIN 2.8 g/dl (3.3-4.9); ALBUMIN/GLOBULIN RATIO 0.66; BILIRUBIN,INDIRECT 0.3 mg/dl (0-1.1); BILIRUBIN,TOTAL 0.3 mg/dl (0.2-1.3); CALCIUM 8.7 mg/dl (8.4-10.2); CREATININE 0.59 mg/dl (0.61-1.24); POTASSIUM 4.5 mmol/L (3.5-5.1)
[2017-02-07 06:10] LABS: MAGNESIUM 1.6 mg/dl (1.7-2.5)
[2017-02-07 06:18] LABS: HEMOGLOBIN 6.9 g/dl (14.0-18.0)
[2017-02-07] MEDS: CARBIDOPA/LEVODOPA 50-200 (CR) TAB PO SCH ×4 (08:53→20:55)
[2017-02-07] MEDS: DOCUSATE SODIUM 100 MG CAP PO SCH ×2 (08:54→20:55)
[2017-02-07 09:41] LABS: HEMATOCRIT 27.4 % (42.0-52.0); HEMOGLOBIN 9.1 g/dl (14.0-18.0)
[2017-02-07] MEDS ORDERED: MAGNESIUM SULFATE 2 GM/50 ML 50 ML IVPB ONE (11:00)
[2017-02-07] MEDS: QUETIAPINE 25 MG TAB PO PRN (13:47)
--- NOTE | 2017-02-07 14:33 | PN ---
Date/Time of Note Date/Time of Note DATE: 02/07/17 TIME: 14:25 Assessment/Plan VTE Prophylaxis VTE Prophylaxis Intervention: SCD's Lines/Catheters IV Catheter Type (from Nrsg): PICC Line Central line still needed: Yes (For IV access) Urinary Cath still in place: No Assessment/Plan Assessment/Plan 71-year-old man with: 1. Left elbow osteomyelitis and septic joint: POD#2 s/p Left elbow excision and debridement and left elbow application of wound VAC by Dr Hensley Continue broad-spectrum IV abx and infectious disease Dr. Villa also following. So far all cultures negative, likely to go on current antibiotics long-term. Per orthopedic surgery, patient can go to long-term facility with wound VAC and ongoing antibiotics, from there he needs to be referred to either a tertiary level of care or to the previous orthopedic surgeon for additional procedures that he will need. Continue pain control as needed Wound care consult for wound VAC care and changes 2. Parkinson's disease: Stable. Continue Sinemet 4 times daily for symptom control. Patient with dementia and currently restrained as he is very agitated , he is a fall risk, he is also at risk of pulling on the wound VAC. Seroquel as needed for agitation especially at night. Prophylaxis: Protonix for GI prophylaxis, SCDs for DVT prophylaxis. Disposition: Follow-up further orthopedic surgery and infectious disease recommendation today, and hopefully discharge planning back to long-term facility in the next 48 hours however the limiting factor currently is patient' s agitation and dementia requiring restraints, he will need at least a sitter at long-term facility. Subjective 24 Hr Interval Summary Free Text/Dictation Patient is completely disoriented, he thinks he is in a car currently and complains that there are people in the car. He is afebrile, white blood cell count within normal, repeat H&H with hemoglobin of 9 which is more reliable, the first hemoglobin reported this morning was erroneous. I have discussed discharge planning with Dr. Hensley, he is agreeable for long-term facility discharge with wound VAC and wound care. Will finalize antibiotic regimen with the infectious disease, discharge planning in the next 24 to 48 hours if patient able to get off restraints and he will need also a sitter at long-term facility. Daughter called and updated. Exam/Review of Systems Vital Signs Vitals Vital Signs Date Time Temp Pulse Resp B/P Pulse Ox O2 Delivery O2 Flow Rate FiO2 8/23/17 07:33 98.3 71 18 135/79 96 02/07/17 06:00 Room Air Intake and Output 02/06/17 02/06/17 02/07/17 15:00 23:00 07:00 Intake Total 350 ml 600 ml Output Total 650 ml 25 ml Balance 350 ml -50 ml -25 ml Exam Constitutional: alert, other (Confused and completely disoriented, on restraints) Respiratory: clear to auscultation, normal air movement Cardiovascular: nl pulses, regular rate and rhythm Gastrointestinal: non-tender, soft Musculoskeletal: nl extremities to inspection Extremities: normal pulses, other (No edema, clubbing or cyanosis) 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: MARINE DIESEL MECHANIC II-XII intact, confused, nl speech, nl strength, other ( Agitated, trying to get out of bed, restrained) Results Result Diagram: 02/07/17 0910 02/07/17 0513 Results 24 hrs Laboratory Tests Test 02/07/17 05:13 02/07/17 09:10 White Blood Count 8.7 # Red Blood Count 2.27 #L Hemoglobin 6.9 #*L 9.1 #L Hematocrit 21.0 #L 27.4 #L Mean Corpuscular Volume 92.5 Mean Corpuscular Hemoglobin 30.4 Mean Corpuscular Hemoglobin Concent 32.9 Red Cell Distribution Width 18.6 H Platelet Count 259 Mean Platelet Volume 9.4 Neutrophils % 67.7 Lymphocytes % 19.5 Monocytes % 11.9 H Eosinophils % 0.1 Basophils % 0.3 Nucleated Red Blood Cells % 0.0 Neutrophils # (Manual) 6 Lymphocytes # 1.7 Monocytes # 1.0 H Eosinophils # 0.0 Basophils # 0.0 Nucleated Red Blood Cells # 0.0 Sodium Level 137 Potassium Level 4.5 Chloride Level 101 Carbon Dioxide Level 26 Anion Gap 15 Blood Urea Nitrogen 10 Creatinine 0.59 L Glucose Level 106 Calcium Level 8.7 Phosphorus Level 3.0 Magnesium Level 1.6 L Total Bilirubin 0.3 Direct Bilirubin 0.00 Indirect Bilirubin 0.3 Aspartate Amino Transf (AST/SGOT) 16 Alanine Aminotransferase (ALT/SGPT) 15 Alkaline Phosphatase 110 Total Protein 7.0 Albumin 2.8 L Globulin 4.20 H Albumin/Globulin Ratio 0.66 Medications Medications Current Medications Ondansetron HCl (Zofran Inj) 4 mg Q6 PRN IV NAUSEA AND/OR VOMITING; Start 8/19 /17 at 01:30 Carbidopa/Levodopa (Sinemet Cr (50/ 200)) 1 tab QID PO Last administered on 13:47; Admin Dose 1 TAB; Start 02/03/17 at 12:00 Pantoprazole (Protonix Tab) 40 mg DAILY@06 PO ; Start 02/04/17 at 06:00 Docusate Sodium 100 mg 100 mg BID PO Last administered on 02/07/17 08:54; Admin Dose 100 MG; Start 02/03/17 at 11:00 Ceftriaxone Sodium (Rocephin) 50 ml @ 100 mls/hr Q24H IVPB Last administered on 02/06/17 20:19; Admin Dose 100 MLS/HR; Start 02/03/17 at 21:00 Quetiapine Fumarate (Seroquel) 12.5 mg QHS PO Last administered on 02/06/17 20 :16; Admin Dose 12.5 MG; Start 02/04/17 at 21:00 Quetiapine Fumarate 12.5 mg 12.5 mg Q12 PRN PO dementia with psychosis Last administered on 02/07/17 13:47; Admin Dose 12.5 MG; Start 02/04/17 at 15:00 Potassium Chloride/Dextrose/ Sod Cl 1,000 ml @ 100 mls/hr Q10H IV Last administered on 02/07/17 10:57; Admin Dose 100 MLS/HR; Start 02/05/17 at 00:00 Vancomycin HCl/ Sodium Chloride (Vancocin/NS) 250 ml @ 83.333 mls/ hr Q24H IVPB Last administered on 02/06/17 23:01; Admin Dose 83.333 MLS/HR; Start at 23:00 Hydralazine HCl (Apresoline) 10 mg Q6H PRN IV SBP>160 Last administered on 02/05 11:25; Admin Dose 10 MG; Start 02/05/17 at 11:30 Miscellaneous Information (*Rx Drug Level Order Reminder*) VANCOMYCIN TROUGH ON 01/17... ONCE ONCE XX ; Start 02/08/17 at 22:00; Stop 02/08/17 at 22:01 JAVON DEVRIES Feb 07, 2017 14:33
--- NOTE | 2017-02-07 20:28 | PN ---
DATE: 02/07/2017 SUBJECTIVE DATA: The patient is more confused today. He is awake with on and off restlessness. Staff had to restrain him. No fevers. LABORATORY AND DIAGNOSTIC DATA: WBC 8.7, H and H 6.9 and 21, platelets 259; no shift, no bands. BUN 10, creatinine 0.59. Microbiology: All cultures since admission negative. Intraoperative culture negative. ANTIMICROBIALS: 1. Vancomycin. 2. Rocephin. INDWELLING: PICC line present on admission. PHYSICAL EXAMINATION: GENERAL: This is a chronically, ill-appearing, wasted, elderly man, who is confused, in no distress. HEENT: Head atraumatic, normocephalic. Sclerae anicteric. Buccal mucosa dry. NECK: Supple. Trachea midline. CHEST: Rise symmetrical. Breath sounds diminished at the bases. HEART: S1, S2. ABDOMEN: Soft, bowel sounds present. EXTREMITIES: Without cyanosis, left elbow dressing intact. ASSESSMENT: 1. Infected left elbow possible osteomyelitis status post incision and drainage with cultures being negative, of note, patient had been on antibiotics prior to intervention. 2. Worsening encephalopathy. Rule out underlying infectious process such as aspiration pneumonia versus urinary tract infection. 3. Parkinson's dementia. 4. Cachexia. PLAN: We are going to order urine culture. We are going to order chest x-ray. Continue him on current antimicrobials. Continue local wound care as per ortho surgery. The patient will require long-term IV antibiotics. Dictated By: Abby Gilliland NP /chun/rupesh /Document#: [id number]
[2017-02-07] MEDS: CEFTRIAXONE 2 GM/50 ML (PMX) 50 ML IVPB SCH (20:54)
[2017-02-07] MEDS: QUETIAPINE 25 MG TAB PO SCH (20:55)
[2017-02-07] MEDS: VANCOMYCIN 1.5 GM in SOD CHLORIDE 0.9% 250 ML IVPB SCH (22:38)
--- NOTE | 2017-02-07 22:46 | RADRPT ---
PROCEDURE: XR Chest. CLINICAL INDICATION: Shortness of breath. TECHNIQUE: Single frontal view. COMPARISON: 11/04/2013. FINDINGS: The right arm PICC line is in satisfactory position. The lungs are clear. The heart size is normal. There is no pleural effusion. There is no pneumothorax. IMPRESSION: 1. Right arm PICC line in satisfactory position. 2. Clear lungs. RPTAT: QQ .Miguel Astorga MD, MD Date Time Electronically viewed and signed by .Miguel Astorga MD, MD on 02/07/2017 22:46 .R/
[2017-02-08] VITALS (20 sets, daily range): BP systolic 111–165; BP diastolic 60–91; PULSE 59–104; RESP 18–20
[2017-02-08] MEDS: hydrALAzine 20 MG INJ IV PRN (04:12)
[2017-02-08] MEDS: PANTOPRAZOLE (EC) 40 MG TAB PO SCH (06:00)
[2017-02-08 06:09] LABS: BASOPHILS % 0.8 % (0.0-2.0); EOSINOPHILS % 0.4 % (0.0-7.0); HEMATOCRIT 27.7 % (42.0-52.0); HEMOGLOBIN 8.8 g/dl (14.0-18.0); LYMPHOCYTES % 20.3 % (15.0-51.0); MEAN CORPUSCULAR HEMOGLOBIN 29.1 pg (29.0-33.0); MEAN CORPUSCULAR HGB CONC 31.8 g/dl (32.0-37.0); MEAN CORPUSCULAR VOLUME 91.7 fl (82.0-101.0); MEAN PLATELET VOLUME 9.1 fl (7.4-10.4); MONOCYTE # 0.6 10^3/ul (0.3-0.9); MONOCYTES % 11.4 % (0.0-11.0); NEUTROPHILS % 66.9 % (39.0-77.0); PLATELET COUNT 210 10^3/UL (140-415); RED BLOOD COUNT 3.02 10^6/ul (4.70-6.10); RED CELL DISTRIBUTION WIDTH 18.3 % (11.5-14.5); WHITE BLOOD COUNT 4.9 10^3/ul (4.8-10.8)
[2017-02-08 06:43] LABS: CALCIUM 8.5 mg/dl (8.4-10.2); CREATININE 0.58 mg/dl (0.61-1.24); POTASSIUM 4.2 mmol/L (3.5-5.1)
[2017-02-08 06:50] LABS: PHOSPHORUS 3.2 mg/dl (2.5-4.9)
[2017-02-08] MEDS: D5W-0.45 NACL + KCL 20 MEQ 1,000 ML IV SCH ×3 (08:00→21:42)
[2017-02-08] MEDS: DOCUSATE SODIUM 100 MG CAP PO SCH ×2 (08:52→21:16)
[2017-02-08] MEDS: CARBIDOPA/LEVODOPA 50-200 (CR) TAB PO SCH ×4 (08:52→21:16)
--- NOTE | 2017-02-08 14:21 | CONS ---
Date/Time of Note Date/Time of Note DATE: 02/08/17 TIME: 14:19 Assessment/Plan Assessment/Plan Chief Complaint/Hosp Course SUBJECTIVE: No acute changes. No fevers, confused, nad ANTIMICROBIALS: Vancomycin, Rocephin. INDWELLINGS: PICC line, right upper extremity, present on admission. PHYSICAL EXAMINATION: GENERAL: Fragile, chronically ill-appearing elderly man who is alert, in no distress. HEENT: Head atraumatic, normocephalic. Sclerae anicteric. Buccal mucosa dry. NECK: Supple. CHEST: Rise symmetrical. Breath sounds clear. HEART: S1, S2. ABDOMEN: Soft. Bowel sounds present. EXTREMITIES: Left elbow dressing intact. ASSESSMENT: 1. 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 2. Parkinson's dementia. 3. Cachexia PLAN: The patient remains unchanged, cxr 02/07 neg, continue abx, f/u ortho rec -s, will need watermaster abx after dc Discussed with staff Problems: Consultation Date/Type/Reason Admit Date/Time Feb 03, 2017 at 01:18 Type of Consultation: ID Exam/Review of Systems Vital Signs Vitals Vital Signs Date Time Temp Pulse Resp B/P Pulse Ox O2 Delivery O2 Flow Rate FiO2 02/08/17 12:00 97.5 104 18 125/83 97 Room Air Intake and Output 02/07/17 02/07/17 02/08/17 15:00 23:00 07:00 Intake Total 1170 ml 1410 ml 1150 ml Output Total 70 ml 50 ml Balance 1170 ml 1340 ml 1100 ml Results Result Diagram: 02/08/17 0525 02/08/17 0525 Results 24 hrs Laboratory Tests Test 02/08/17 05:25 White Blood Count 4.9 # Red Blood Count 3.02 #L Hemoglobin 8.8 L Hematocrit 27.7 L Mean Corpuscular Volume 91.7 Mean Corpuscular Hemoglobin 29.1 Mean Corpuscular Hemoglobin Concent 31.8 L Red Cell Distribution Width 18.3 H Platelet Count 210 Mean Platelet Volume 9.1 Neutrophils % 66.9 Lymphocytes % 20.3 Monocytes % 11.4 H Eosinophils % 0.4 Basophils % 0.8 Nucleated Red Blood Cells % 0.0 Neutrophils # (Manual) 3 Lymphocytes # 1.0 Monocytes # 0.6 Eosinophils # 0.0 Basophils # 0.0 Nucleated Red Blood Cells # 0.0 Sodium Level 137 Potassium Level 4.2 Chloride Level 103 Carbon Dioxide Level 24 Anion Gap 14 Blood Urea Nitrogen 10 Creatinine 0.58 L Glucose Level 103 Calcium Level 8.5 Phosphorus Level 3.2 Magnesium Level 2.0 Medications Medications Current Medications Ondansetron HCl (Zofran Inj) 4 mg Q6 PRN IV NAUSEA AND/OR VOMITING; Start 02/03 at 01:30 Carbidopa/Levodopa (Sinemet Cr (50/ 200)) 1 tab QID PO Last administered on 12:33; Admin Dose 1 TAB; Start 02/03/17 at 12:00 Pantoprazole (Protonix Tab) 40 mg DAILY@06 PO ; Start 02/04/17 at 06:00 Docusate Sodium 100 mg 100 mg BID PO Last administered on 02/08/17 08:52; Admin Dose 100 MG; Start 02/03/17 at 11:00 Ceftriaxone Sodium (Rocephin) 50 ml @ 100 mls/hr Q24H IVPB Last administered on 02/07/17 20:54; Admin Dose 100 MLS/HR; Start 02/03/17 at 21:00 Quetiapine Fumarate (Seroquel) 12.5 mg QHS PO Last administered on 02/07/17 20 :55; Admin Dose 12.5 MG; Start 02/04/17 at 21:00 Quetiapine Fumarate 12.5 mg 12.5 mg Q12 PRN PO dementia with psychosis Last administered on 02/07/17 13:47; Admin Dose 12.5 MG; Start 02/04/17 at 15:00 Potassium Chloride/Dextrose/ Sod Cl 1,000 ml @ 100 mls/hr Q10H IV Last administered on 02/08/17 12:33; Admin Dose 100 MLS/HR; Start 02/05/17 at 00:00 Vancomycin HCl/ Sodium Chloride (Vancocin/NS) 250 ml @ 83.333 mls/ hr Q24H IVPB Last administered on 02/07/17 22:38; Admin Dose 83.333 MLS/HR; Start at 23:00 Hydralazine HCl (Apresoline) 10 mg Q6H PRN IV SBP>160 Last administered on 8/24 /17at 04:12; Admin Dose 10 MG; Start 02/05/17 at 11:30 Miscellaneous Information (*Rx Drug Level Order Reminder*) VANCOMYCIN TROUGH ON 01/17... ONCE ONCE XX ; Start 02/08/17 at 22:00; Stop 02/08/17 at 22:01 LARRY ARIAS NP Feb 08, 2017 14:21
--- NOTE | 2017-02-08 14:32 | PN ---
Date/Time of Note Date/Time of Note DATE: 02/08/17 TIME: 14:16 Assessment/Plan VTE Prophylaxis VTE Prophylaxis Intervention: SCD's Lines/Catheters IV Catheter Type (from Nrsg): PICC Line Central line still needed: Yes (for IV access ) Urinary Cath still in place: No Reason Cath still needed: other (indicate) Assessment/Plan Assessment/Plan 71-year-old man with: 1. Left elbow osteomyelitis and septic joint: POD#3 s/p Left elbow excision and debridement and left elbow application of wound VAC by Dr Hensley Continue broad-spectrum IV abx and infectious disease Dr. Villa also following. So far all cultures negative, likely to go on current antibiotics long-term. Per orthopedic surgery, patient can go to half-way facility with wound VAC and ongoing antibiotics, from there he needs to be referred to either a tertiary level of care or to the previous orthopedic surgeon for additional procedures that he will need. Continue pain control as needed, appreciate wound care eval and plans for wound care /wound vac for SNF D/c plan for SNF tomorrow is stays off restraints. 2. Parkinson's disease: Stable. Continue Sinemet 4 times daily for symptom control. Patient with dementia and currently restrained but much calmer and oriented this afternoon D/c restraints and 1:1 sitter overnight with d/c plan to SNF with sitter and wound vac tomorrow Continue Seroquel as needed for agitation especially at night. 3. Delirium with known underlying dementia: Likely episode of delirium worsened by anesthesia and recent procedure. Patient much more cooperative and aware and alert and oriented today. Will discontinue restraints, one-to-one sitter has been requested Plan is for was discharged to half-way facility in the next 24 hours with a 1:1 sitter. Prophylaxis: Protonix for GI prophylaxis, SCDs for DVT prophylaxis. Disposition: Follow-up further orthopedic surgery and infectious disease recommendation today, and hopefully discharge planning back to half-way facility tomorrow with 1:1 sitter and also wound vac. Subjective 24 Hr Interval Summary Free Text/Dictation Patient is much less confused today, he is alert and oriented 3 at least, he was able to tell me he is in the hospital, if the months of January in the year of 2016, he was slightly off on the days he thought it was February 03. He is aware that there is a wound VAC on his left elbow, he was able to tell me that he had multiple debridement before already and seems to be having repeated infection in that area he understands that the will loosen off the restraints and even remove them later today and he is not supposed to touch the wound VAC or try to get out of bed. We will have a sitter for today once restraints removed. Plan is to discharge to half-way facility in the next 24 hours with a wound VAC and a 1:1 sitter Exam/Review of Systems Vital Signs Vitals Vital Signs Date Time Temp Pulse Resp B/P Pulse Ox O2 Delivery O2 Flow Rate FiO2 02/08/17 12:00 97.5 104 18 125/83 97 Room Air Intake and Output 02/07/17 02/07/17 02/08/17 15:00 23:00 07:00 Intake Total 1170 ml 1410 ml 1150 ml Output Total 70 ml 50 ml Balance 1170 ml 1340 ml 1100 ml Exam Constitutional: alert, frail, oriented Respiratory: clear to auscultation, normal air movement Cardiovascular: nl pulses, regular rate and rhythm Gastrointestinal: non-tender, soft Musculoskeletal: other (Left elbow with wound VAC in place) Extremities: normal pulses, other (No edema, clubbing or cyanosis) 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: 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 II-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, confused (Much less confused today almost close to baseline ), nl speech, nl strength (Baseline) Results Result Diagram: 02/08/17 0525 02/08/17 0525 Results 24 hrs Laboratory Tests Test 02/08/17 05:25 White Blood Count 4.9 # Red Blood Count 3.02 #L Hemoglobin 8.8 L Hematocrit 27.7 L Mean Corpuscular Volume 91.7 Mean Corpuscular Hemoglobin 29.1 Mean Corpuscular Hemoglobin Concent 31.8 L Red Cell Distribution Width 18.3 H Platelet Count 210 Mean Platelet Volume 9.1 Neutrophils % 66.9 Lymphocytes % 20.3 Monocytes % 11.4 H Eosinophils % 0.4 Basophils % 0.8 Nucleated Red Blood Cells % 0.0 Neutrophils # (Manual) 3 Lymphocytes # 1.0 Monocytes # 0.6 Eosinophils # 0.0 Basophils # 0.0 Nucleated Red Blood Cells # 0.0 Sodium Level 137 Potassium Level 4.2 Chloride Level 103 Carbon Dioxide Level 24 Anion Gap 14 Blood Urea Nitrogen 10 Creatinine 0.58 L Glucose Level 103 Calcium Level 8.5 Phosphorus Level 3.2 Magnesium Level 2.0 Medications Medications Current Medications Ondansetron HCl (Zofran Inj) 4 mg Q6 PRN IV NAUSEA AND/OR VOMITING; Start 02/03 at 01:30 Carbidopa/Levodopa (Sinemet Cr (50/ 200)) 1 tab QID PO Last administered on 12:33; Admin Dose 1 TAB; Start 02/03/17 at 12:00 Pantoprazole (Protonix Tab) 40 mg DAILY@06 PO ; Start 02/04/17 at 06:00 Docusate Sodium 100 mg 100 mg BID PO Last administered on 02/08/17 08:52; Admin Dose 100 MG; Start 02/03/17 at 11:00 Ceftriaxone Sodium (Rocephin) 50 ml @ 100 mls/hr Q24H IVPB Last administered on 02/07/17 20:54; Admin Dose 100 MLS/HR; Start 02/03/17 at 21:00 Quetiapine Fumarate (Seroquel) 12.5 mg QHS PO Last administered on 02/07/17 20 :55; Admin Dose 12.5 MG; Start 02/04/17 at 21:00 Quetiapine Fumarate 12.5 mg 12.5 mg Q12 PRN PO dementia with psychosis Last administered on 02/07/17 13:47; Admin Dose 12.5 MG; Start 02/04/17 at 15:00 Potassium Chloride/Dextrose/ Sod Cl 1,000 ml @ 100 mls/hr Q10H IV Last administered on 02/08/17 12:33; Admin Dose 100 MLS/HR; Start 02/05/17 at 00:00 Vancomycin HCl/ Sodium Chloride (Vancocin/NS) 250 ml @ 83.333 mls/ hr Q24H IVPB Last administered on 02/07/17 22:38; Admin Dose 83.333 MLS/HR; Start at 23:00 Hydralazine HCl (Apresoline) 10 mg Q6H PRN IV SBP>160 Last administered on 02/08 04:12; Admin Dose 10 MG; Start 02/05/17 at 11:30 Miscellaneous Information (*Rx Drug Level Order Reminder*) VANCOMYCIN TROUGH ON 01/17... ONCE ONCE XX ; Start 02/08/17 at 22:00; Stop 02/08/17 at 22:01 JAVON DEVRIES Feb 08, 2017 14:28
[2017-02-08] MEDS: CEFTRIAXONE 2 GM/50 ML (PMX) 50 ML IVPB SCH (21:16)
[2017-02-08] MEDS: QUETIAPINE 25 MG TAB PO SCH (21:16)
[2017-02-08] MEDS: VANCOMYCIN 1.5 GM in SOD CHLORIDE 0.9% 250 ML IVPB SCH (23:45)
[2017-02-09 01:30] VITALS: BP 125/89; RESP 18
[2017-02-09] MEDS: QUETIAPINE 25 MG TAB PO PRN (03:14)
[2017-02-09] MEDS: D5W-0.45 NACL + KCL 20 MEQ 1,000 ML IV SCH (04:00)
[2017-02-09 06:08] LABS: BASOPHILS % 0.5 % (0.0-2.0); EOSINOPHILS % 0.5 % (0.0-7.0); HEMATOCRIT 25.7 % (42.0-52.0); HEMOGLOBIN 8.4 g/dl (14.0-18.0); LYMPHOCYTES # 0.8 10^3/ul (0.8-2.9); LYMPHOCYTES % 19.3 % (15.0-51.0); MEAN CORPUSCULAR HEMOGLOBIN 30.4 pg (29.0-33.0); MEAN CORPUSCULAR HGB CONC 32.7 g/dl (32.0-37.0); MEAN CORPUSCULAR VOLUME 93.1 fl (82.0-101.0); MEAN PLATELET VOLUME 9.3 fl (7.4-10.4); MONOCYTE # 0.4 10^3/ul (0.3-0.9); MONOCYTES % 9.4 % (0.0-11.0); NEUTROPHILS % 70.1 % (39.0-77.0); PLATELET COUNT 187 10^3/UL (140-415); RED BLOOD COUNT 2.76 10^6/ul (4.70-6.10); RED CELL DISTRIBUTION WIDTH 17.8 % (11.5-14.5); WHITE BLOOD COUNT 4.4 10^3/ul (4.8-10.8)
[2017-02-09] MEDS: PANTOPRAZOLE (EC) 40 MG TAB PO SCH (06:20)
[2017-02-09 06:43] LABS: CALCIUM 8.2 mg/dl (8.4-10.2); CREATININE 0.58 mg/dl (0.61-1.24); POTASSIUM 4.7 mmol/L (3.5-5.1)
[2017-02-09 07:17] VITALS: BP 172/74; RESP 18
[2017-02-09] MEDS: CARBIDOPA/LEVODOPA 50-200 (CR) TAB PO SCH ×2 (08:41→15:35)
[2017-02-09] MEDS: DOCUSATE SODIUM 100 MG CAP PO SCH (08:41)
--- NOTE | 2017-02-09 09:57 | PN ---
Date/Time of Note Date/Time of Note DATE: 02/09/17 TIME: 09:48 Assessment/Plan VTE Prophylaxis VTE Prophylaxis Intervention: SCD's Lines/Catheters IV Catheter Type (from Nrsg): PICC Line Central line still needed: Yes (for IV abx ) Urinary Cath still in place: No Assessment/Plan Assessment/Plan 71-year-old man with: 1. Left elbow osteomyelitis and septic joint: POD#4 s/p Left elbow excision and debridement and left elbow application of wound VAC by Dr Hensley Continue broad-spectrum IV abx, vancomycin and Rocephin. Infectious disease following. So far all cultures negative, needs current antibiotics long-term. Per orthopedic surgery, patient can go to [facility] facility with wound VAC and ongoing antibiotics, from there he needs to be referred to either a tertiary level of care or to the previous orthopedic surgeon for additional procedures that he will need. Continue pain control as needed, appreciate wound care eval and plans for wound care /wound vac for SNF D/c plan for SNF today, patient has been off restraints overnight. 2. Parkinson's disease: Stable. Continue Sinemet 4 times daily for symptom control. Patient with dementia and currently restrained but much calmer and oriented this afternoon Off restraints and 1:1 sitter overnight with d/c to SNF with sitter and wound vac today. Continue Seroquel as needed for agitation especially at night. 3. Delirium with known underlying dementia: Likely episode of delirium worsened by anesthesia and recent procedure. Patient much more cooperative and aware and alert and oriented today. Will discontinue restraints, one-to-one sitter has been requested Discharge to [facility] facility today with a 1:1 sitter. Prophylaxis: Protonix for GI prophylaxis, SCDs for DVT prophylaxis. Disposition: Follow-up further orthopedic surgery and infectious disease recommendation today, and Discharge to SNF with 1:1 sitter and wound vac. Subjective 24 Hr Interval Summary Free Text/Dictation Patient doing well this morning, laboratory data stable, he is awake alert, no agitations overnight. He has a sitter. We will remove the wound VAC today for discharge to [facility] facility and it will have to be reapplied at [facility] facility on arrival today. To remain on IV antibiotics per infectious disease. Exam/Review of Systems Vital Signs Vitals Vital Signs Date Time Temp Pulse Resp B/P Pulse Ox O2 Delivery O2 Flow Rate FiO2 02/09/17 07:17 98.0 65 18 172/74 99 02/08/17 18:00 Room Air Intake and Output 02/08/17 02/08/17 02/09/17 15:00 23:00 07:00 Intake Total 300 ml 1890 ml 950 ml Output Total 300 ml 650 ml Balance 300 ml 1590 ml 300 ml Exam Constitutional: alert, frail, oriented Respiratory: clear to auscultation, normal air movement Cardiovascular: nl pulses, regular rate and rhythm Gastrointestinal: non-tender, soft Musculoskeletal: other (Wound VAC in place left elbow) Extremities: normal pulses 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-XII 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1 Lymphocytes # 0.8 Monocytes # 0.4 Eosinophils # 0.0 Basophils # 0.0 Nucleated Red Blood Cells # 0.0 Sodium Level 138 Potassium Level 4.7 Chloride Level 104 Carbon Dioxide Level 26 Anion Gap 13 Blood Urea Nitrogen 13 Creatinine 0.58 L Glucose Level 99 Calcium Level 8.2 L Magnesium Level 1.8 Medications Medications Current Medications Ondansetron HCl (Zofran Inj) 4 mg Q6 PRN IV NAUSEA AND/OR VOMITING; Start 02/03 at 01:30 Carbidopa/Levodopa (Sinemet Cr (50/ 200)) 1 tab QID PO Last administered on 08:41; Admin Dose 1 TAB; Start 02/03/17 at 12:00 Pantoprazole (Protonix Tab) 40 mg DAILY@06 PO Last administered on 02/09/17 06 :20; Admin Dose 40 MG; Start 02/04/17 at 06:00 Docusate Sodium 100 mg 100 mg BID PO Last administered on 02/09/17 08:41; Admin Dose 100 MG; Start 02/03/17 at 11:00 Ceftriaxone Sodium (Rocephin) 50 ml @ 100 mls/hr Q24H IVPB Last administered on 02/08/17 21:16; Admin Dose 100 MLS/HR; Start 02/03/17 at 21:00 Quetiapine Fumarate (Seroquel) 12.5 mg QHS PO Last administered on 02/08/17 21 :16; Admin Dose 12.5 MG; Start 02/04/17 at 21:00 Quetiapine Fumarate 12.5 mg 12.5 mg Q12 PRN PO dementia with psychosis Last administered on 02/09/17 03:14; Admin Dose 12.5 MG; Start 02/04/17 at 15:00 Potassium Chloride/Dextrose/ Sod Cl (D5-1/2ns + KCl 20 Meq) 1,000 ml @ 100 mls/ hr Q10H IV Last administered on 02/08/17 21:42; Admin Dose 100 MLS/HR; Start 02/05/17 at 00:00 Hydralazine HCl 10 mg 10 mg Q6H PRN IV SBP>160 Last administered on 02/08/17 04:12; Admin Dose 10 MG; Start 02/05/17 at 11:30 Vancomycin HCl/ Sodium Chloride (Vancocin/NS) 150 ml @ 75 mls/hr Q12H IVPB ; Start 02/09/17 at 18:00 JAVON DEVRIES Feb 09, 2017 09:57
--- NOTE | 2017-02-09 09:59 | PDOCDIS ---
Discharge Instructions CONDITION Patient Condition: Stable HOME CARE INSTRUCTIONS: Diet Instructions: Regular ACTIVITY: Activity Restrictions: Slowly Increase Activity FOLLOW UP/APPOINTMENTS Follow-up Plan Follow-up with orthopedic surgery per [facility] arrangements as an outpatient within 2-4 weeks. Wound VAC to be reapplied upon arrival at long term facility PICC line care Wound care OTHER ORDERS: Other Orders: Please refer to wound care orders for wound care and wound VAC instructions JAVON DEVRIES Feb 09, 2017 09:58
[2017-02-09 13:49] VITALS: BP 168/77; RESP 18
--- NOTE | 2017-02-09 14:44 | CONS ---
Date/Time of Note Date/Time of Note DATE: 02/09/17 TIME: 14:43 Assessment/Plan Assessment/Plan Chief Complaint/Hosp Course No events overnight, patient is sleeping, looks comfortable afebrile Temperature 97.9 pulse 64 respirations 18 blood pressure 168/77 saturation 99% WBC 4.4 H&H 8.4 and 25.7 platelets 187 no shift BUN 13 creatinine 0.58 Vanco trough on February 08 10.9 ANTIMICROBIALS: Vancomycin, Rocephin. INDWELLINGS: PICC line, right upper extremity, present on admission. PHYSICAL EXAMINATION: GENERAL: Fragile, chronically ill-appearing elderly man who is alert, in no distress. HEENT: Head atraumatic, normocephalic. Sclerae anicteric. Buccal mucosa dry. NECK: Supple. CHEST: Rise symmetrical. Breath sounds clear. HEART: S1, S2. ABDOMEN: Soft. Bowel sounds present. EXTREMITIES: Left elbow dressing intact. ASSESSMENT: 1. 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 2. Parkinson's dementia. 3. Cachexia PLAN: The patient remains unchanged, cxr 02/07 neg, pending discharge to care home facility on current antibiotics for 6 weeks. Patient to follow with Ortho Evra for further recommendations, may require longer treatment with antibiotics Discussed with staff Problems: Consultation Date/Type/Reason Admit Date/Time Feb 03, 2017 at 01:18 Type of Consultation: ID Exam/Review of Systems Vital Signs Vitals Vital Signs Date Time Temp Pulse Resp B/P Pulse Ox O2 Delivery O2 Flow Rate FiO2 02/09/17 13:49 97.9 64 18 168/77 99 02/08/17 18:00 Room Air Intake and Output 02/08/17 02/08/17 02/09/17 15:00 23:00 07:00 Intake Total 300 ml 1890 ml 950 ml Output Total 300 ml 650 ml Balance 300 ml 1590 ml 300 ml Results Result Diagram: 02/09/17 0531 02/09/17 0531 Results 24 hrs Laboratory Tests Test 02/08/17 22:23 02/09/17 05:31 Vancomycin Level Trough 10.9 White Blood Count 4.4 L Red Blood Count 2.76 L Hemoglobin 8.4 L Hematocrit 25.7 L Mean Corpuscular Volume 93.1 Mean Corpuscular Hemoglobin 30.4 Mean Corpuscular Hemoglobin Concent 32.7 Red Cell Distribution Width 17.8 H Platelet Count 187 Mean Platelet Volume 9.3 Neutrophils % 70.1 Lymphocytes % 19.3 Monocytes % 9.4 Eosinophils % 0.5 Basophils % 0.5 Nucleated Red Blood Cells % 0.0 Neutrophils # (Manual) 3.1 Lymphocytes # 0.8 Monocytes # 0.4 Eosinophils # 0.0 Basophils # 0.0 Nucleated Red Blood Cells # 0.0 Sodium Level 138 Potassium Level 4.7 Chloride Level 104 Carbon Dioxide Level 26 Anion Gap 13 Blood Urea Nitrogen 13 Creatinine 0.58 L Glucose Level 99 Calcium Level 8.2 L Magnesium Level 1.8 Medications Medications Current Medications Ondansetron HCl (Zofran Inj) 4 mg Q6 PRN IV NAUSEA AND/OR VOMITING; Start 02/03 at 01:30 Carbidopa/Levodopa (Sinemet Cr (50/ 200)) 1 tab QID PO Last administered on 08:41; Admin Dose 1 TAB; Start 02/03/17 at 12:00 Pantoprazole (Protonix Tab) 40 mg DAILY@06 PO Last administered on 02/09/17 06 :20; Admin Dose 40 MG; Start 02/04/17 at 06:00 Docusate Sodium 100 mg 100 mg BID PO Last administered on 02/09/17 08:41; Admin Dose 100 MG; Start 02/03/17 at 11:00 Ceftriaxone Sodium (Rocephin) 50 ml @ 100 mls/hr Q24H IVPB Last administered on 02/08/17 21:16; Admin Dose 100 MLS/HR; Start 02/03/17 at 21:00 Quetiapine Fumarate (Seroquel) 12.5 mg QHS PO Last administered on 02/08/17 21 :16; Admin Dose 12.5 MG; Start 02/04/17 at 21:00 Quetiapine Fumarate (Seroquel) 12.5 mg Q12 PRN PO dementia with psychosis Last administered on 02/09/17 03:14; Admin Dose 12.5 MG; Start 02/04/17 at 15:00 Hydralazine HCl 10 mg 10 mg Q6H PRN IV SBP>160 Last administered on 02/08/17 04:12; Admin Dose 10 MG; Start 02/05/17 at 11:30 Vancomycin HCl/ Sodium Chloride (Vancocin/NS) 150 ml @ 75 mls/hr Q12H IVPB ; Start 02/09/17 at 18:00 LARRY ARIAS NP Feb 09, 2017 14:44
[2017-02-09] MEDS: hydrALAzine 20 MG INJ IV PRN (17:27)
[2017-02-09] MEDS ORDERED: VANCOMYCIN 750 MG in SOD CHLORIDE 0.9% 150 ML IVPB SCH (18:00)
== END 2017-02-09 18:10 | DRG 463 ==
LOC: E/R 20:16 → MS2 02-03 01:18
PROVIDERS: ADMIT Internal Medicine; ATTEND Internal Medicine
PROC: 30233N1 Transfusion of Nonautologous Red Blood Cells into Peripheral Vein, Percutaneous Approach (ICD-10-PCS; 2017-02-02)
PROC: 2W1DX6Z Compression of Left Lower Arm using Pressure Dressing (ICD-10-PCS; 2017-02-05)
PROC: 0JBH0ZZ Excision of Left Lower Arm Subcutaneous Tissue and Fascia, Open Approach (ICD-10-PCS; principal; 2017-02-05 12:00)
DX: M86.8X2 Other osteomyelitis, upper arm (principal); G93.40 Encephalopathy, unspecified; M00.9 Pyogenic arthritis, unspecified; R64 Cachexia; G20 Parkinson's disease; R65.10 Systemic inflammatory response syndrome (SIRS) of non-infectious origin without acute organ dysfunction; F05 Delirium due to known physiological condition; L02.414 Cutaneous abscess of left upper limb; D50.9 Iron deficiency anemia, unspecified; F02.80 Dementia in other diseases classified elsewhere, unspecified severity, without behavioral disturbance, psychotic disturbance, mood disturbance, and anxiety; Z68.20 Body mass index [BMI] 20.0-20.9, adult
CPT/HCPCS: 36430; 71010; 73070; 80048; 80053; 80061; 80202; 82270; 83735; 84100; 85014; 85018; 85025; 85610; 85730; 86850; 86900; 86901; 86920; 87040; 87070; 87075; 87081; 87102; 93005; 96365; 96366; J0360; J1200; J2250; J2370; J2405; J3010; J3370; J3475; J3480; J7040; J7050; P9016